=== PATIENT | male | born 1945 | race Caucasian/White ===

== ENCOUNTER 2018-02-09 15:13 | Outpatient (CLI) ==
--- NOTE | 2018-02-09 17:19 | DI ---
EXAM: Chest two views HISTORY: Cough COMPARISON: None TECHNIQUE: Two views of the chest were performed FINDINGS: The lungs are clear. Lungs are hyperinflated. There is no pleural effusion or pneumothora x. The heart is normal in size. The mediastinal contour is normal, noting atherosclerosis. There a re no acute abnormalities of the bones. Cervical spinal fusion hardware. Right humeral ORIF. IMPRESSION: 1. No acute cardiopulmonary process. 2. Hyperinflated lungs may suggest chronic obstructive pulmonary disease.
== END 2018-02-09 15:14 | disposition home or self-care (01) ==
LOC: RHC-LAB 15:13
PROVIDERS: ATTEND Emergency Medicine
DX: R05 Cough (principal); R03.0 Elevated blood-pressure reading, without diagnosis of hypertension; R35.0 Frequency of micturition; F17.200 Nicotine dependence, unspecified, uncomplicated; Z12.5 Encounter for screening for malignant neoplasm of prostate; W57.XXXA Bitten or stung by nonvenomous insect and other nonvenomous arthropods, initial encounter
CPT/HCPCS: 36415; 80053; 85025; 86617; 86757; 87798

== ENCOUNTER 2018-02-10 10:09 | Outpatient (CLI) | END 2018-02-10 10:10 | disposition home or self-care (01) | LOC: CAR 10:09 | PROVIDERS: ATTEND Emergency Medicine | DX: R03.0 Elevated blood-pressure reading, without diagnosis of hypertension (principal) | CPT/HCPCS: 93005; 93010 ==

== ENCOUNTER 2018-12-26 10:50 | Outpatient (CLI) | END 2018-12-26 10:51 | disposition home or self-care (01) | LOC: LAB 10:50 | PROVIDERS: ATTEND General Practice | DX: I10 Essential (primary) hypertension (principal); Z12.5 Encounter for screening for malignant neoplasm of prostate; Z79.899 Other long term (current) drug therapy | CPT/HCPCS: 36415; 80053; 80061; 81001; 85025 ==